=== PATIENT | male | born 1950 | race American Indian/Alaskan Native ===

== ENCOUNTER 2016-11-18 09:31 | Emergency (ER) | payer MEDICAID ==
[2016-11-18 09:41] VITALS: BP 108/70
--- NOTE | 2016-11-18 10:16 | EDM.PDOC ---
ED HPI GENERAL MEDICAL PROBLEM - General Chief Complaint: General Stated Complaint: right hand pain Time Seen by Provider: 11/18/16 10:13 Source of Information: Reports: Patient, [facility] Records History Limitations: Reports: No Limitations - History of Present Illness INITIAL COMMENTS - FREE TEXT/NARRATIVE: 66 male presents to ER from long-term after a fall and complaints of right hand pain. Pt is legally blind and took a misstep falling to the ground. Pt complains of right hand pain and denies any other injury. Onset: Today Duration: Hour(s): (2) Location: Reports: Upper Extremity, Right Quality: Reports: Ache Severity: Mild Improves with: Reports: Rest Worsens with: Reports: Movement Associated Symptoms: Reports: No Other Symptoms Treatments [employer]ER: Reports: Cold Therapy Right Middle Hand Pain Score (Numeric/FACES): 2 - Related Data Allergies Allergy/AdvReac Type Severity Reaction Status Date / Time No Known Drug Allergies Allergy Cannot Verified 11/18/16 09:54 Remember Home Meds: Home Meds Aspirin [Adult Low Dose Aspirin EC] 81 mg PO DAILY 11/18/16 [History] Calcium Carbonate/Vitamin D3 [Calcium 600 + D3 Softgel] 1 each PO DAILY [History] [place]/Min Oil/Jackie/Wool Alcoh [Eucerin Crme] 57 gm TOP DAILY 11/18/16 [History] Lisinopril/Hydrochlorothiazide [Lisinopril-Hctz 10-12.5 mg Tab] 1 each PO DAILY 11/18/16 [History] Multivitamin [Multi-Vitamin Daily] 1 each PO DAILY 11/18/16 [History] Psyllium Husk/Aspartame [Metamucil Sugar Free] 1 pkt PO DAILY 11/18/16 [History] atorvaSTATin [Lipitor] 10 mg PO DAILY 11/18/16 [History] metFORMIN [Glucophage] 1,000 mg PO DAILY 11/18/16 [History] Past Medical History HEENT History: Reports: Impaired Vision Cardiovascular History: Reports: High Cholesterol, Hypertension, PVD Gastrointestinal History: Reports: Chronic Constipation Musculoskeletal History: Reports: Fracture Neurological History: Reports: Brain Injury Endocrine/Metabolic History: Reports: Diabetes, Type I Social & Family History - Tobacco Use Smoking Status *Q: Former Smoker Used Tobacco, but Quit: Yes Month Tobacco Last Used: October Second Hand Smoke Exposure: No - Caffeine Use Caffeine Use: Reports: Coffee, Soda, Tea - Recreational Drug Use Recreational Drug Use: No ED ROS GENERAL - Review of Systems Review Of Systems: See Below Constitutional: Reports: No Symptoms HEENT: Reports: No Symptoms Respiratory: Reports: No Symptoms Cardiovascular: Reports: No Symptoms Endocrine: Reports: No Symptoms GI/Abdominal: Reports: No Symptoms : Reports: No Symptoms Musculoskeletal: Reports: Joint Pain Skin: Reports: No Symptoms Neurological: Reports: No Symptoms Psychiatric: Reports: No Symptoms Hematologic/Lymphatic: Reports: No Symptoms Immunologic: Reports: No Symptoms ED EXAM, GENERAL - Physical Exam Exam: See Below Exam Limited By: No Limitations General Appearance: Alert, WD/WN, No Apparent Distress Throat/Mouth: Normal Inspection, Normal Lips, Normal Teeth, Normal Gums, Normal Oropharynx, Normal Voice, No Airway Compromise Head: Atraumatic, Normocephalic Neck: Normal Inspection, Supple, Non-Tender, Full Range of Motion Respiratory/Chest: No Respiratory Distress, Lungs Clear, Normal Breath Sounds, No Accessory Muscle Use, Chest Non-Tender Cardiovascular: Normal Peripheral Pulses, Regular Rate, Rhythm, No Edema, No Gallop, No JVD, No Murmur, No Rub GI/Abdominal: Normal Bowel Sounds, Soft, Non-Tender, No Organomegaly, No Distention, No Abnormal Bruit, No Mass Back Exam: Normal Inspection, Full Range of Motion, NT Extremities: Other (right middle finger deformity) Neurological: Alert, Oriented, CN II-XII Intact, Normal Cognition, Normal Gait, Normal Reflexes, No Motor/Sensory Deficits Psychiatric: Normal Affect, Normal Mood Skin Exam: Warm, Dry, Intact, Normal Color, No Rash Lymphatic: No Adenopathy ED GENERAL MEDICAL PROCEDURES - Joint Reduction Site: Finger (R) Pre-procedure NV status: Normal Post-procedure NV status: Normal Technique: Traction/Counter Traction Number of Attempts: 1 Post-Reduction Imaging: Completely Reduced Joint Reduction Complications: No Course - Vital Signs Last Recorded V/S: Last Vital Signs Temp 36.7 C 11/18/16 09:34 Pulse 71 11/18/16 09:34 Resp 18 11/18/16 09:34 BP 108/70 11/18/16 09:34 Pulse Ox 97 11/18/16 09:34 - Orders/Labs/Meds Orders: Active Orders 24 hr Category Date Time Status Hand 2V Rt [CR] Stat Exams 11/18/16 10:16 Ordered Hand Comp Min 3V Rt [CR] Stat Exams 11/18/16 09:42 Taken - Radiology Interpretation Free Text/Narrative:: right hand xray- right middle finger PIP dislocation without fracture post reduction- full range of motion no dislocation or fracture Departure - Departure Time of Disposition: 10:26 Disposition: Home, Self-Care 01 Condition: Good Clinical Impression: Dislocation closed, finger Qualifiers: Encounter type: initial encounter Qualified Code(s): S63.259A - Unspecified dislocation of unspecified finger, initial encounter - Discharge Information Instructions: Finger or Thumb Dislocation, [id number] Referrals: Areli Dalton MD [Primary Care Provider] - Forms: ED Department Discharge - My Orders Last 24 Hours: My Active Orders 11/18/16 09:42 Hand Comp Min 3V Rt [CR] Stat 11/18/16 10:16 Hand 2V Rt [CR] Stat - Assessment/Plan Last 24 Hours: My Active Orders 11/18/16 09:42 Hand Comp Min 3V Rt [CR] Stat 11/18/16 10:16 Hand 2V Rt [CR] Stat Assessment:: 1. right middle PIP dislocation- reduced Plan: 1. discharge home 2. jaden tape fingers 3. follow up in clinic for further evaluation and treatment
== END 2016-11-18 10:30 | disposition home or self-care (01) ==
LOC: KA.ED 09:31
DX: S63.282A Dislocation of proximal interphalangeal joint of right middle finger, initial encounter (principal); E78.00 Pure hypercholesterolemia, unspecified; I10 Essential (primary) hypertension; H54.8 Legal blindness, as defined in USA; E10.9 Type 1 diabetes mellitus without complications; I73.9 Peripheral vascular disease, unspecified; Z79.82 Long term (current) use of aspirin; Z79.899 Other long term (current) drug therapy; Z79.84 Long term (current) use of oral hypoglycemic drugs; Z87.891 Personal history of nicotine dependence; W10.9XXA Fall (on) (from) unspecified stairs and steps, initial encounter
CPT/HCPCS: 26770; 73120-RT; 73130-RT; 99283

== ENCOUNTER 2019-11-01 21:20 | Emergency (ER) | payer MEDICARE, MEDICAID ==
--- NOTE | 2019-11-01 22:03 | EDM.PDOC ---
ED HPI GENERAL MEDICAL PROBLEM - General Chief Complaint: General Stated Complaint: broken finger Time Seen by Provider: 11/01/19 21:58 Source of Information: Reports: Patient, EMS History Limitations: Reports: No Limitations - History of Present Illness INITIAL COMMENTS - FREE TEXT/NARRATIVE: Patient is a 69-year-old gentleman who presents to the emergency department this evening via EMS from [facility] with a complaint of right hand pain. Per nursing staff. Patient tripped and fell forward on outstretched hand. He injured his third and fourth digit. Patient denies syncopal episode, dizziness, headache, neck pain, chest pain, shortness of breath, nausea, vomiting, or any other injury. Onset: Today, Sudden Duration: Hour(s): Location: Reports: Upper Extremity, Right Quality: Reports: Ache Severity: Mild Improves with: Reports: None Worsens with: Reports: Movement Context: Reports: Other (Fall) Right Finger-Middle Pain Score (Numeric/FACES): 6 - Related Data Allergies Allergy/AdvReac Type Severity Reaction Status Date / Time No Known Drug Allergies Allergy Cannot Verified 11/01/19 21:39 Remember Home Meds: Home Meds Aspirin [Adult Low Dose Aspirin EC] 81 mg PO DAILY 11/18/16 [History] Calcium Carbonate/Vitamin D3 [Calcium 600 + D3 Softgel] 1 each PO DAILY 11/18/16 [History] [place]/Min Oil/Jackie/Wool Alcoh [Eucerin Crme] 57 gm TOP DAILY 11/18/16 [History] Lisinopril/Hydrochlorothiazide [Lisinopril-Hctz 10-12.5 mg Tab] 1 each PO DAILY 11/18/16 [History] Psyllium Husk/Aspartame [Metamucil Sugar Free] 1 pkt PO DAILY 11/18/16 [History] atorvaSTATin [Lipitor] 10 mg PO DAILY 11/18/16 [History] metFORMIN [Glucophage] 500 mg PO DAILY 11/18/16 [History] Acetaminophen [Tylenol] 650 mg PO Q6H PRN 11/02/19 [History] Past Medical History HEENT History: Reports: Impaired Vision Cardiovascular History: Reports: High Cholesterol, Hypertension, PVD Gastrointestinal History: Reports: Chronic Constipation Musculoskeletal History: Reports: Fracture Neurological History: Reports: Brain Injury Endocrine/Metabolic History: Reports: Diabetes, Type I Social & Family History - Caffeine Use Caffeine Use: Reports: Coffee, Soda, Tea ED ROS GENERAL - Review of Systems Review Of Systems: Comprehensive ROS is negative, except as noted in HPI. Constitutional: Reports: No Symptoms HEENT: Reports: No Symptoms Respiratory: Reports: No Symptoms Cardiovascular: Reports: No Symptoms Endocrine: Reports: No Symptoms GI/Abdominal: Reports: No Symptoms : Reports: No Symptoms Musculoskeletal: Reports: Hand Pain (Right) Skin: Reports: No Symptoms Neurological: Reports: No Symptoms Psychiatric: Reports: No Symptoms Hematologic/Lymphatic: Reports: No Symptoms Immunologic: Reports: No Symptoms ED EXAM, GENERAL - Physical Exam Exam: See Below Exam Limited By: No Limitations General Appearance: Alert, WD/WN, No Apparent Distress Throat/Mouth: Normal Inspection, Normal Oropharynx, No Airway Compromise Head: Atraumatic, Normocephalic Neck: Normal Inspection Respiratory/Chest: No Respiratory Distress Back Exam: Normal Inspection Extremities: Other (Right hand third digit undulation at MIP) Neurological: Alert, Oriented, Normal Cognition Psychiatric: Normal Affect, Normal Mood Skin Exam: Warm, Dry, Intact, Normal Color, No Rash ED GENERAL MEDICAL PROCEDURES - Joint Reduction Right Fingers Sedation: Other (None) Pre-procedure NV status: Normal Post-procedure NV status: Normal Number of Attempts: 1 Post-Reduction Imaging: Completely Reduced, No Fracture Seen Joint Reduction Complications: No Progress/Comments: Right third digit MIP reduced without complication - Splinting Right 3rd Digit Pre-procedure NV status: Normal Post-procedure NV status: Normal Splint Type: Pre-Fabricated Splint Material: Aluminum-Foam Applied & Form Fitted By: Provider Provider Post-Splint Application NV Check: NV Status Normal, Good Position Complications: No Course - Vital Signs Last Recorded V/S: Last Vital Signs Temp 98.5 F 11/01/19 21:25 Pulse 65 11/01/19 21:25 Resp 20 11/01/19 21:25 BP 120/62 11/01/19 21:25 Pulse Ox 98 11/01/19 21:25 - Re-Assessments/Exams Free Text/Narrative Re-Assessment/Exam: 11/28/19 10:55 Patient afebrile, nontoxic appearing, vital signs stable, tolerated procedure well. Departure - Departure Time of Disposition: 10:56 Disposition: DC/Tfer to [facility] 03 Condition: Good Clinical Impression: Dislocation, finger closed Qualifiers: Encounter type: initial encounter Qualified Code(s): S63.259A - Unspecified dislocation of unspecified finger, initial encounter - Discharge Information Instructions: Finger or Thumb Dislocation, [id number] Referrals: Areli Dalton MD [Primary Care Provider] - Forms: ED Department Discharge - Assessment/Plan Assessment:: Finger Dislocation Plan: Follow-up with PCP
[2019-11-02 01:41] VITALS: BP 120/62; PULSE 65
--- NOTE | 2019-11-02 08:55 | CR ---
[id number] RAD/RAD Hand Right 3V Exam: RAD Hand Right 3V Indication:FALL Comparison: No prior imaging for comparison. Discussion: Third digit PIP joint demonstrates abnormal alignment. There is dorsal dislocation of the middle phalanx in relation to the proximal phalanx seen best on the oblique and lateral views. Possible small avulsion fracture along the volar base of the middle phalanx, however this is difficult to visualize on lateral view. No other acute findings in the hand. Incidentally noted are changes of osteoarthritis throughout the hand and wrist as well as an accessory ossicle versus osteochondral body or chronically ununited fracture fragment in the region of the distal ulna. Impression: Third digit PIP joint dislocation with possible small fracture, described above. Haroon Thao MD 11/02/19 0854 Thank you for allowing us to participate in the care of your patient.
--- NOTE | 2019-11-02 09:11 | CR ---
[id number] RAD/RAD Fingers Right Exam: RAD Fingers Right Indication:FALL Comparison: Today. Discussion: The third digit PIP joint is in normal alignment following reduction. Subtle cortical irregularity along the dorsal aspect middle phalanx is possibly a nondisplaced fracture. However, no other evidence of fracture in the third ray. Impression: Successful reduction of the third digit PIP joint. Haroon Thao MD 11/02/19 0909 Thank you for allowing us to participate in the care of your patient.
== END 2019-11-01 22:57 ==
LOC: KA.ED 21:20
DX: S63.282A Dislocation of proximal interphalangeal joint of right middle finger, initial encounter (principal); I10 Essential (primary) hypertension; E10.9 Type 1 diabetes mellitus without complications; E78.00 Pure hypercholesterolemia, unspecified; Z79.82 Long term (current) use of aspirin; Z79.84 Long term (current) use of oral hypoglycemic drugs; Z79.899 Other long term (current) drug therapy; W01.0XXA Fall on same level from slipping, tripping and stumbling without subsequent striking against object, initial encounter
CPT/HCPCS: 26770; 73130-RT; 73140-F7; 99283; 99283-25

== ENCOUNTER 2020-04-09 12:39 | Emergency (ER) | payer MEDICARE, MEDICAID ==
--- NOTE | 2020-04-09 13:28 | EDM.PDOC ---
ED HPI GENERAL MEDICAL PROBLEM - General Chief Complaint: General Stated Complaint: COVID + Time Seen by Provider: 04/09/20 12:39 Source of Information: Reports: Patient, [facility] Records History Limitations: Reports: No Limitations - History of Present Illness INITIAL COMMENTS - FREE TEXT/NARRATIVE: Kenyon, 69-year-old male, arrives via [facility]. Today he required 2 L of oxygen to maintain good saturations. Covid positive testing done 13 days ago. He states he is generalized weakness with occasional cough. Today he just did not feel the same and staff felt he required further evaluation secondary of his onset of oxygen requirement to maintain sats above 90. Review of correction record shows good saturation on the first as well as second with no oxygen and has had no fever. Today he required 3 L nasal cannula to maintain oxygenation at 95%. On his arrival in transfer from ambulance cart to bed his saturations hold at 88% maximum a low of 86% on room air. He denies any pain, pressure, nor fever at this time. Onset: Today Duration: Hour(s): Location: Reports: Generalized Severity: Moderate Improves with: Reports: None Worsens with: Reports: None Context: Reports: Sick Contact Associated Symptoms: Reports: Cough - Related Data Allergies Allergy/AdvReac Type Severity Reaction Status Date / Time No Known Drug Allergies Allergy Cannot Verified 04/09/20 14:54 Remember Home Meds: Home Meds Aspirin [Adult Low Dose Aspirin EC] 81 mg PO DAILY 11/18/16 [History] Calcium Carbonate/Vitamin D3 [Calcium 600 + D3 Softgel] 1 each PO DAILY 11/18/16 [History] Lisinopril/Hydrochlorothiazide [Lisinopril-Hctz 10-12.5 mg Tab] 1 each PO DAILY 11/18/16 [History] Psyllium Husk/Aspartame [Metamucil Sugar Free] 1 pkt PO DAILY 11/18/16 [History] atorvaSTATin [Lipitor] 10 mg PO DAILY 11/18/16 [History] metFORMIN [Glucophage] 500 mg PO DAILY 11/18/16 [History] Acetaminophen [Tylenol] 325 mg PO BID 11/02/19 [History] Acetaminophen [Tylenol] 650 mg PO Q6H PRN 04/09/20 [History] Past Medical History HEENT History: Reports: Impaired Vision Other HEENT History: dry eyes, cortical blindness Cardiovascular History: Reports: High Cholesterol, Hypertension, PVD Gastrointestinal History: Reports: Chronic Constipation Musculoskeletal History: Reports: Fracture Neurological History: Reports: Brain Injury Psychiatric History: Reports: Anxiety, Dementia Endocrine/Metabolic History: Reports: Diabetes, Type I Other Endocrine/Metabolic History: hyperlipidemia - Infectious Disease History Infectious Disease History: Reports: Other (See Below) (Covid 19) Social & Family History - Family History Family Medical History: Noncontributory - Tobacco Use Tobacco Use Status *Q: Current Status Unknown - Caffeine Use Caffeine Use: Reports: Coffee, Soda, Tea ED ROS GENERAL - Review of Systems Review Of Systems: See Below Constitutional: Reports: Fever, Weakness HEENT: Reports: No Symptoms Respiratory: Reports: Cough Cardiovascular: Denies: Chest Pain Endocrine: Reports: Fatigue GI/Abdominal: Reports: Constipation : Reports: No Symptoms Musculoskeletal: Reports: Muscle Pain Skin: Reports: No Symptoms Neurological: Reports: No Symptoms Psychiatric: Reports: No Symptoms Hematologic/Lymphatic: Reports: No Symptoms Immunologic: Reports: No Symptoms ED EXAM, GENERAL - Physical Exam Exam: See Below General Appearance: Alert, WD/WN, No Apparent Distress Ears: Normal External Exam, Normal Canal, Hearing Grossly Normal, Normal TMs Nose: Normal Inspection, Normal Mucosa, No Blood Throat/Mouth: Normal Inspection, Normal Lips, Normal Gums, Normal Oropharynx, Normal Voice, No Airway Compromise, Other Head: Atraumatic, Normocephalic Neck: Normal Inspection, Supple, Non-Tender, Full Range of Motion Respiratory/Chest: No Respiratory Distress, Lungs Clear, Normal Breath Sounds, No Accessory Muscle Use, Chest Non-Tender, Other (Mild diminished bases with fine rhonchi) Cardiovascular: Normal Peripheral Pulses, Regular Rate, Rhythm, No Edema, No Gallop, No JVD, No Murmur, No Rub GI/Abdominal: Normal Bowel Sounds, Soft, Non-Tender, No Organomegaly, No Distention, No Abnormal Bruit, No Mass (Male) Exam: Deferred Rectal (Males) Exam: Deferred Back Exam: Normal Inspection, Full Range of Motion Extremities: Normal Inspection, Normal Range of Motion, Non-Tender, Normal Capillary Refill, No Pedal Edema Neurological: Alert, Oriented, CN II-XII Intact Psychiatric: Normal Affect, Normal Mood Skin Exam: Warm, Dry, Intact, Normal Color, No Rash Lymphatic: No Adenopathy #1 Interpretation EKG Date: 04/09/20 Time: 13:14 Rhythm: NSR Gillett: Normal P-Wave: Present QRS: Normal ST-T: Depressed (inferior ischemia) QT: Normal Comparison: NA - No Prior EKG Course - Vital Signs Last Recorded V/S: Last Vital Signs Temp 37.1 C 04/09/20 12:40 Pulse 88 04/09/20 12:40 Resp 23 H 04/09/20 12:40 BP 100/53 L 04/09/20 12:40 Pulse Ox 86 L 04/09/20 12:40 - Orders/Labs/Meds Orders: Active Orders 24 hr Category Date Time Status EKG Documentation Completion [RC] ASDIRECTED Care 04/09/20 12:59 Active UA RFX MILADY AND CULT IF INDIC [URIN] Stat Lab 04/09/20 12:58 Ordered EKG 12 Lead [EK] Urgent Ther 04/09/20 12:59 Ordered Labs: Laboratory Tests 04/09/20 04/09/20 Range/Units 14:00 14:00 WBC 8.42 (5.00-10.00) 10^3/uL RBC 4.56 (4.50-6.00) 10^6/uL Hgb 14.2 (13.0-17.0) g/dL Hct 41.5 (40.0-52.0) % MCV 91.0 (82.0-92.0) fL MCH 31.1 H (27.0-31.0) pg MCHC 34.2 (32.0-36.0) g/dL RDW 12.8 (11.5-14.5) % Plt Count 323 (150-400) 10^3/uL MPV 8.5 (7.4-10.4) fL Immature Gran % (Auto) 0.6 (0.0-5.0) % Neut % (Auto) 78.2 H (50.0-70.0) % Lymph % (Auto) 10.5 L (20.0-40.0) % [place] % (Auto) 10.3 H (2.0-8.0) % Eos % (Auto) 0.2 L (1.0-3.0) % Baso % (Auto) 0.2 (0.0-1.0) % Neut # (Auto) 6.58 (2.50-7.00) 10^3/uL Lymph # (Auto) 0.88 L (1.00-4.00) 10^3/uL [place] # (Auto) 0.87 H (0.10-0.80) 10^3/uL Eos # (Auto) 0.02 L (0.10-0.30) 10^3/uL Baso # (Auto) 0.02 (0.00-0.10) 10^3/uL Immature Gran # (Auto) 0.05 (0.00-0.50) 10^3/uL Lactic Acid 1.3 (0.4-2.0) mmol/L - Radiology Interpretation Free Text/Narrative:: 1 view chest x-ray shows an asymmetric distribution and appearance consistent with pneumonia including the sequela of COVID-19. - Re-Assessments/Exams Free Text/Narrative Re-Assessment/Exam: Cabrera sister was contacted unable to answer the phone. She then returned a phone call to me from [phone]. She was given the information that he was going to be returned back to [facility] with a diagnosis of viral pneumonia. All questions were answered to the best of my ability. Viral pneumonia may take time to resolve. You will need to monitor your blood sugars as scheduled. Continue all medications as previously scheduled. . Follow-up as needed. 04/09/20 15:31 04/09/20 15:36 Departure - Departure Time of Disposition: 15:37 Disposition: DC/Tfer to SNF 03 Condition: Fair Clinical Impression: Dyspnea due to COVID-19, COVID-19 - Discharge Information *PRESCRIPTION DRUG MONITORING PROGRAM REVIEWED*: Not Applicable *COPY OF PRESCRIPTION DRUG MONITORING REPORT IN PATIENT EFREN: Not Applicable Referrals: Areli Dalton MD [Primary Care Provider] - Forms: ED Department Discharge Additional Instructions: Continue current treatment Viral pneumonia may take time to resolve. You will need to monitor your blood sugars as scheduled. Continue all medications as previously scheduled. Contact your regular provider to determine if changes in treatment plan would be recommended. Follow-up as needed. Sepsis Event Note (ED) - Focused Exam Vital Signs: Vital Signs Temp Pulse Resp BP Pulse Ox 04/09/20 12:40 37.1 C 88 23 H 100/53 L 86 L - Problem List & Annotations (1) COVID-19 SNOMED Code(s): 696174679 Code(s): U07.1 - COVID-19 Status: Acute Priority: High Current Visit: Yes (2) Dyspnea due to COVID-19 SNOMED Code(s): 790419104727798 Code(s): U07.1 - COVID-19; R06.00 - DYSPNEA, UNSPECIFIED Status: Acute Priority: High Current Visit: Yes (3) Diabetes 1.5, managed as type 2 SNOMED Code(s): 234917215 Code(s): E13.9 - OTHER SPECIFIED DIABETES MELLITUS WITHOUT COMPLICATIONS Status: Acute Current Visit: Yes - Problem List Review Problem List Initiated/Reviewed/Updated: Yes - My Orders Last 24 Hours: My Active Orders 04/09/20 12:58 UA RFX MILADY AND CULT IF INDIC [URIN] Stat 04/09/20 12:59 EKG Documentation Completion [RC] ASDIRECTED EKG 12 Lead [EK] Urgent - Assessment/Plan Last 24 Hours: My Active Orders 04/09/20 12:58 UA RFX MILADY AND CULT IF INDIC [URIN] Stat 04/09/20 12:59 EKG Documentation Completion [RC] ASDIRECTED EKG 12 Lead [EK] Urgent Plan: Continue current treatment Viral pneumonia may take time to resolve. You will need to monitor your blood sugars as scheduled. Continue all medications as previously scheduled. Contact your regular provider to determine if changes in treatment plan would be recommended. Follow-up as needed.
--- NOTE | 2020-04-09 13:58 | CR ---
[id number] RAD/RAD Chest PA or AP 1V EXAM: RAD Chest PA or AP 1V INDICATION: SHORTNESS OF BREATH. COMPARISON: 2009. DISCUSSION: Cardiomediastinal silhouette is normal in size and contour. Opacification in both lungs right greater than left. Findings on the right are most prominent in the mid and lower lung. Asymmetric distribution and appearance are most consistent with pneumonia, including sequela of Covid 19. No pleural effusion or pneumothorax. IMPRESSION: As above. Haroon Thao MD 04/09/20 1649 Thank you for allowing us to participate in the care of your patient.
[2020-04-09 15:15] LABS: ANION GAP 13.9 mmol/L (5-15); CHLORIDE,CL 97 mmol/L (98-115); SODIUM,NA 135 mmol/L (136-145)
[2020-04-09 20:22] VITALS: BP 119/78; PULSE 68
== END 2020-04-09 16:25 ==
LOC: KA.ED 12:39
DX: U07.1 COVID-19 (principal); I10 Essential (primary) hypertension; E10.51 Type 1 diabetes mellitus with diabetic peripheral angiopathy without gangrene; E78.5 Hyperlipidemia, unspecified; Z79.82 Long term (current) use of aspirin; Z79.899 Other long term (current) drug therapy
CPT/HCPCS: 36415; 71045; 80053; 83605; 84484; 85025; 85379; 93005; 99284; 99285-25